=== PATIENT | female | born 1945 | race Asian ===

== ENCOUNTER → 2016-02-17 | Outpatient (CLI) | payer MEDICAID ==
[~2016-02-17] MED LIST: INSULADS SC; LIPI10TA PO; LISI-538 PO; METF500T PO; MIRA3350 PO; VITA50003 PO
[2016-02-17 09:01] LABS: ALBUMIN 3.9 GM/DL (3.2-5.2); ALBUMIN/GLOBULIN RATIO 1.15 (1.00-1.93); ALKALINE PHOSPHATASE 59 U/L (45-117); ALT/SGPT 63 U/L (12-78); ANION GAP 9 MEQ/L (8-16); AST/SGOT 33 U/L (15-37); BILIRUBIN,TOTAL 0.3 MG/DL (0.2-1.0); BLOOD UREA NITROGEN 14 MG/DL (7-18); CALCIUM LEVEL 8.8 MG/DL (8.8-10.2); CARBON DIOXIDE LEVEL 28 MEQ/L (21-32); CHLORIDE LEVEL 105 MEQ/L (98-107); CHOLESTEROL LEVEL 218 MG/DL (<200); CREATININE FOR GFR 0.58 MG/DL (0.55-1.02); GLOMERULAR FILTRATION RATE > 60.0 (>45); GLUCOSE, FASTING 112 MG/DL (80-110); POTASSIUM SERUM 4.2 MEQ/L (3.5-5.1); SODIUM LEVEL 142 MEQ/L (136-145); TOTAL PROTEIN 7.3 GM/DL (6.4-8.2); TRIGLYCERIDES LEVEL 175 MG/DL (<150)
[2016-02-17 09:15] LABS: BASO # 0.1 K/mm3 (0.0-0.2); BASO % 1.2 % (0.0-1.0); EOS # 0.3 K/mm3 (0.0-0.50); EOS % 3.4 % (0.0-3.0); LARGE UNSTAINED CELL # 0.2 K/mm3 (0.0-0.4); LYMPH # 4.4 K/mm3 (1.5-4.5); LYMPH % 49.9 % (24.0-44.0); MEAN CORPUSCULAR HGB CONC 31.1 g/dl (32.0-36.5); MEAN CORPUSCULAR VOLUME 70.7 fl (80.0-96.0); MONO # 0.4 K/mm3 (0.0-0.8); MONO % 4.6 % (0.0-5.0); NEUTROPHILS # 3.3 K/mm3 (1.8-7.7); NEUTROPHILS % 38.8 % (36.0-66.0); PLATELET COUNT, AUTOMATED 289 k/mm3 (150-450); WHITE BLOOD COUNT 8.5 K/mm3 (4.0-10.0)
== END ==
LOC: M LAB 08:04
PROVIDERS: ATTEND Physician Assistant Medical
DX: E11.9 Type 2 diabetes mellitus without complications (principal)

== ENCOUNTER → 2016-04-14 | Outpatient (CLI) | payer MEDICAID, OTHER ==
[2016-04-14 09:42] LABS: ANION GAP 7 MEQ/L (8-16); BLOOD UREA NITROGEN 10 MG/DL (7-18); CALCIUM LEVEL 8.7 MG/DL (8.8-10.2); CARBON DIOXIDE LEVEL 29 MEQ/L (21-32); CHLORIDE LEVEL 103 MEQ/L (98-107); CHOLESTEROL LEVEL 256 MG/DL (<200); CREATININE FOR GFR 0.61 MG/DL (0.55-1.02); GLOMERULAR FILTRATION RATE > 60.0 (>45); GLUCOSE, FASTING 153 MG/DL (80-110); POTASSIUM SERUM 4.5 MEQ/L (3.5-5.1); SODIUM LEVEL 139 MEQ/L (136-145); TRIGLYCERIDES LEVEL 212 MG/DL (<150)
== END ==
LOC: M LAB 08:35
PROVIDERS: ATTEND Nurse Practitioner Family
DX: E11.9 Type 2 diabetes mellitus without complications (principal); E78.5 Hyperlipidemia, unspecified; E55.9 Vitamin D deficiency, unspecified

== ENCOUNTER → 2016-05-11 | Outpatient (CLI) | payer OTHER ==
--- NOTE | 2016-05-11 13:58 | REPMRS ---
Patient History The patient states she has not had a clinical breast exam in over a year. Family history of unknown cancer in father and unknown cancer in mother. Digital Mammo Screening Bilat: May 11, 2016 - Exam #: [id number] Bilateral CC and MLO view(s) were taken. Technologist: Elle Medina, Technologist Prior study comparison: May 10, 2015, left breast digital mammo diagnostic unilateral performed at [facility]. May 10, 2015, left breast ultrasound unilateral limited performed at [facility]. May 03, 2015, bilateral digital mammo screening bilat performed at [facility]. FINDINGS: There are scattered fibroglandular densities. There has been no change in the appearance of the mammogram from the prior studies. There is a mild amount of residual fibroglandular tissue which is fairly symmetric. There is no interval development of dominant mass, architectural distortion, or clustered microcalcification suggestive of malignancy. A 10 mm nodule at 6 o'clock in left breast as seen on mammo and US last year as simple cyst, unchanged. There are scattered, small, benign calcifications of doubtful clinical significance. No significant changes when compared with prior studies. ASSESSMENT: BI-RADS/ACR category 2 mammogram. Benign finding(s). Recommendation Routine screening mammogram in 1 year (for women over age 40). This mammogram was interpreted with the aid of an FDA-approved computer-aided dectection system. A. Negative x-ray reports should not delay biopsy if a dominant or clinically suspicious mass is present. B. Four to eight percent of cancers are not identified by mammography. C. Adenosis and dense breast may obscure an underlying neoplasm. Electronically Signed By: Jignesh Singleton MD 05/11/16 [id number]
== END ==
LOC: M RAD 10:53
PROVIDERS: ATTEND Family Medicine Addiction Medicine
DX: R92.8 Other abnormal and inconclusive findings on diagnostic imaging of breast (principal)

== ENCOUNTER → 2016-05-29 | Outpatient (CLI) | payer OTHER ==
--- NOTE | 2016-05-29 16:08 | REP ---
RIGHT SHOULDER SERIES, COMPLETE: 05/29/2016: Clinical history: Shoulder arthropathy, pain. Findings: AC joint shows no widening of the joint space only minor degenerative change. There is minimal degenerative changes glenohumeral joint. Bones demineralized. No fracture, clavicle, ribs, scapula or humerus. No visible or displaced rib lesion, effusion or pneumothorax. Adjacent to the shoulder. There is no subluxation, dislocation of the humeral head from the glenoid. No abnormal soft tissue calcifications. Impressions:1. Some mild degenerative changes without visible fracture, avulsion, destructive lesion or abnormal soft-tissue calcification. Bones demineralized. Signed by Jignesh Singleton MD 05/29/2016 04:35 P
== END ==
LOC: M RAD 11:14
PROVIDERS: ATTEND Nurse Practitioner Family
DX: M12.811 Other specific arthropathies, not elsewhere classified, right shoulder (principal)

== ENCOUNTER 2016-07-26 19:24 | Inpatient (IN) | payer OTHER ==
[~2016-07-26] VITALS: Ht 149.9 cm; Wt 58.6 kg
[2016-07-26] MEDS ORDERED: SUCCINYLCHOLINE INJ 200 MG/10 ML VIAL (J0330) IV ONE (19:45)
[2016-07-26] MEDS ORDERED: LIDOCAINE IV SCH ×2 (19:45)
[2016-07-26] MEDS ORDERED: DILUENT IV SCH ×2 (19:45)
[2016-07-26] MEDS ORDERED: ETOMIDATE INJ 20MG/10ML VIAL IV ONE (19:45)
[2016-07-26] MEDS ORDERED: MIDAZOLAM HCL 50 MG in D5W 40 ML IV SCH ×2 (19:45→20:00)
[2016-07-26] MEDS ORDERED: D5W IV SCH ×2 (19:45)
[2016-07-26 20:03] LABS: BASO # 0.1 K/mm3 (0.0-0.2); BASO % 0.6 % (0.0-1.0); EOS # 0.3 K/mm3 (0.0-0.50); LARGE UNSTAINED CELL # 0.3 K/mm3 (0.0-0.4); LYMPH # 9.2 K/mm3 (1.5-4.5); MEAN CORPUSCULAR HEMOGLOBIN 23.1 pg (27.0-33.0); MEAN CORPUSCULAR HGB CONC 31.6 g/dl (32.0-36.5); MEAN CORPUSCULAR VOLUME 73.1 fl (80.0-96.0); MONO # 0.4 K/mm3 (0.0-0.8); MONO % 2.7 % (0.0-5.0); NEUTROPHILS # 5.6 K/mm3 (1.8-7.7); NEUTROPHILS % 35.7 % (36.0-66.0); PLATELET COUNT, AUTOMATED 254 k/mm3 (150-450); RED CELL DISTRIBUTION WIDTH 15.5 % (11.5-14.5)
[2016-07-26 20:09] LABS: WHITE BLOOD COUNT 15.6 K/mm3 (4.0-10.0)
[2016-07-26] MEDS ORDERED: ISOVUE-370 76% 100ML VIAL (Q9967) As Ordered ONE (20:11)
[2016-07-26 20:14] LABS: INR 1.03
[2016-07-26] MEDS ORDERED: fentaNYL 250 MCG/5 ML INJECTION (J3010) As Ordered ONE (20:34)
[2016-07-26] MEDS ORDERED: ROCURONIUM BROMIDE 50 MG/5 ML VIAL As Ordered ONE ×2 (20:34→23:43)
[2016-07-26 20:39] LABS: ALBUMIN 3.5 GM/DL (3.2-5.2); ALBUMIN/GLOBULIN RATIO 1.03 (1.00-1.93); ALKALINE PHOSPHATASE 58 U/L (45-117); ALT/SGPT 51 U/L (12-78); ANION GAP 10 MEQ/L (8-16); AST/SGOT 42 U/L (15-37); BILIRUBIN,DIRECT < 0.1 MG/DL (0.0-0.2); BILIRUBIN,TOTAL 0.3 MG/DL (0.2-1.0); BLOOD UREA NITROGEN 13 MG/DL (7-18); CALCIUM LEVEL 8.3 MG/DL (8.8-10.2); CARBON DIOXIDE LEVEL 25 MEQ/L (21-32); CHLORIDE LEVEL 105 MEQ/L (98-107); CREATININE FOR GFR 0.69 MG/DL (0.55-1.02); GLOMERULAR FILTRATION RATE > 60.0 (>45); GLUCOSE, FASTING 220 MG/DL (80-110); POTASSIUM SERUM 3.6 MEQ/L (3.5-5.1); SODIUM LEVEL 140 MEQ/L (136-145); TOTAL PROTEIN 6.9 GM/DL (6.4-8.2)
[2016-07-26] MEDS ORDERED: INSULANT SC (20:58)
[2016-07-26] MEDS ORDERED: TRAZ50TA4 PO (20:58)
[2016-07-26] MEDS ORDERED: ATOR40TA PO (20:58)
[2016-07-26] MEDS ORDERED: GABA-279 PO (20:58)
[2016-07-26] MEDS ORDERED: METF1000 PO (20:58)
[2016-07-26] MEDS ORDERED: LISI-542 PO (20:58)
--- NOTE | 2016-07-26 21:00 | REPUSA ---
CLINICAL HISTORY: Trauma. TECHNIQUE: Multiple axial, coronal, sagittal CT images were obtained through brain without IV contra st material. COMMENTS: Note is made of a very large hemispheric right subdural hematoma measuring up to 18 mm. There is sig nificant midline shift noted towards the left measuring up to 13 mm. There is significant compressio n of the right lateral ventricle. There is some compression of left lateral ventricle as well. There is evidence of small left subdural hematoma measuring up to 3 mm. There are areas of diffuse l eft frontal subarachnoid hemorrhage. There is obliteration of the quadrigeminal plate cisterns yoana tible with transtentorial herniation. Nonspecific calcification noted of the right cerebellar region . There is bilateral ethmoid and right sphenoid sinusitis noted. No definite skull fracture is visible . Both mastoids air cells are clear. Both orbits are symmetric. IMPRESSION: 1. Very large right subdural hematoma. 2. Midline shift to the left measuring up to 13 mm. 3. Small left subdural hematoma. 4. Left subarachnoid hemorrhage. 5. Evidence of transtentorial herniation. Discussed with Dr Bell at 8-44 pm EST Thank you for your kind referral of this patient. We appreciate the opportunity to participate in thi s patient's care.
[2016-07-26] MEDS ORDERED: THROMBIN SOLN 20,000 UNITS KIT As Ordered ONE ×3 (21:05→23:47)
[2016-07-26] MEDS ORDERED: LIDOCAINE W/EPINEPHRINE 1% 20ML VIAL As Ordered ONE ×2 (21:06→21:51)
--- NOTE | 2016-07-26 21:10 | REPUSA ---
CLINICAL HISTORY: Trauma. TECHNIQUE: Multiple axial images were obtained through the cervical spine. Images were also reconstr ucted in coronal and sagittal planes. The study was performed without IV contrast. FINDINGS: ET tube is in place. There is no fracture or spondylolisthesis visualized. The paraspinal soft tissues are unremarkable. There are no lytic or blastic lesions. Straightening of cervical lordosis is seen, suggesting muscular spasm. There is evidence of multilev el disc disease, demonstrated by osteophytosis and endplate sclerosis. Biapical fibronodular scarring is seen most severe in the right. Note is made of a heterogeneous thy roid gland suggesting nodule. Consider correlation with thyroid ultrasound. IMPRESSION: 1. No fracture or spondylolisthesis. 2. Straightening of cervical lordosis is seen, suggesting muscular spasm. 3. Multilevel spondylosis. Thank you for your kind referral of this patient. We appreciate the opportunity to participate in thi s patient's care.
[2016-07-26] MEDS ORDERED: METAL LOCK LOOP XX ONE (21:40)
[2016-07-26] MEDS ORDERED: LIDOCAINE 1% SDV INJ 30 ML VIAL As Ordered ONE (21:51)
[2016-07-26] MEDS ORDERED: ceFAZolin 1GM INJ (J0690) As Ordered ONE (21:51)
[2016-07-26] MEDS ORDERED: PHENYLephrine HCL 500 MCG/5 ML (100MCG/ML) SYRINGE (J2370) As Ordered ONE (22:11)
[2016-07-26 22:16] LABS: ABG BASE EXCESS -6.6 (-2.0-2.0); ABG DEVICE MECHAN. VENT; ABG HCO3 18.8 MEQ/L (22.0-26.0); ABG STANDARD HCO3 19.1 MEQ/L (22.0-26.0); ABG TOTAL CO2 19.9 MEQ/L (23.0-31.0); ABG pH (ARTERIAL) 7.324 UNITS (7.350-7.450)
[2016-07-26] MEDS ORDERED: PHENYLEPHRINE INJ 10MG/ML VIAL (J2370) As Ordered ONE (22:17)
[2016-07-26] MEDS ORDERED: MANNITOL 25% 12.5 GM/50 ML VIAL (J2150) As Ordered ONE ×2 (22:34→22:54)
[2016-07-26 23:13] LABS: ABG DEVICE MECHAN. VENT; ABG HCO3 17.6 MEQ/L (22.0-26.0); ABG PARTIAL PRESSURE O2 133.7 mmHg (75.0-100.0); ABG STANDARD HCO3 17.9 MEQ/L (22.0-26.0); ABG TOTAL CO2 18.7 MEQ/L (23.0-31.0); ABG pH (ARTERIAL) 7.306 UNITS (7.350-7.450)
[2016-07-27] VITALS (9 sets, daily range): BP systolic 26–82; BP diastolic 16–50
[2016-07-27] MEDS ORDERED: PHENYLEPHRINE INJ 10MG/ML VIAL (J2370) As Ordered ONE (00:06)
[2016-07-27 00:38] LABS: ABG BASE EXCESS -15.4 (-2.0-2.0); ABG DEVICE MECHAN. VENT; ABG PARTIAL PRESSURE O2 93.5 mmHg (75.0-100.0); ABG STANDARD HCO3 12.6 MEQ/L (22.0-26.0); ABG TOTAL CO2 13.1 MEQ/L (23.0-31.0)
[2016-07-27 00:43] LABS: ABG pH (ARTERIAL) 7.167 UNITS (7.350-7.450)
--- NOTE | 2016-07-27 01:27 | REP ---
Clinical: Endotracheal tube placement. Comparison: None. Findings: Endotracheal tube 2.5 cm from the andres. Mediastinum and cardiac silhouette are within normal limits. Lung tang demonstrate chronic-appearing interstitial changes without obvious focal consolidation, effusion, or pneumothorax. Skeletal structures intact. Impression: Endotracheal tube in satisfactory position. Chronic-appearing interstitial changes. Signed by Irwin Treviño MD 07/27/2016 01:18 A
[2016-07-27] MEDS ORDERED: PHENYLEPHRINE HCL INJ 50 MG in D5W 500 ML IV SCH ×2 (01:30→03:00)
[2016-07-27 02:21] LABS: ABG BASE EXCESS -11.8 (-2.0-2.0); ABG HCO3 15.8 MEQ/L (22.0-26.0); ABG PARTIAL PRESSURE CO2 43.9 mmHg (35.0-45.0); ABG PARTIAL PRESSURE O2 99.1 mmHg (75.0-100.0); ABG TOTAL CO2 17.2 MEQ/L (23.0-31.0)
[2016-07-27 02:22] LABS: ABG pH (ARTERIAL) 7.175 UNITS (7.350-7.450)
[2016-07-27] MEDS ORDERED: MIDAZOLAM INJ 2 MG/2 ML VIAL (J2250) IV PRN (03:00)
[2016-07-27] MEDS ORDERED: MORPHINE 2 MG/ML 1ML SYRINGE IV PRN (03:00)
--- NOTE | 2016-07-27 03:01 | REP ---
Clinical: Cardiac arrest. Comparison: 07/26/2016. Findings: Endotracheal tube 2.5 cm above the andres. Nasogastric tube courses below left hemidiaphragm. Mediastinum and cardiac silhouette are stable and within normal limits. Lung tang demonstrate chronic-appearing interstitial changes with possible trace basilar atelectasis. No focal consolidation, effusion, or pneumothorax. Skeletal structures intact. Impression: 1. Lines and tubes in satisfactory position. 2. Chronic-appearing changes. Cannot exclude trace basilar atelectasis. Signed by Irwin Treviño MD 07/27/2016 02:52 A
[2016-07-27 03:11] LABS: ANION GAP 16 MEQ/L (8-16); BLOOD UREA NITROGEN 12 MG/DL (7-18); CALCIUM LEVEL 5.1 MG/DL (8.8-10.2); CARBON DIOXIDE LEVEL 11 MEQ/L (21-32); CHLORIDE LEVEL 117 MEQ/L (98-107); CREATININE FOR GFR 0.84 MG/DL (0.55-1.02); GLOMERULAR FILTRATION RATE > 60.0 (>45); POTASSIUM SERUM 3.4 MEQ/L (3.5-5.1); SODIUM LEVEL 144 MEQ/L (136-145)
[2016-07-27 03:12] LABS: GLUCOSE, FASTING 409 MG/DL (80-110)
[2016-07-27 03:37] LABS: FIBRINOGEN > 700 MG/DL (221-452)
--- NOTE | 2016-07-27 06:46 | CCN ---
DATE: 07/27/2016 NOTE: Asked by Dr. Alvarado to consult on Ms. Robles for mechanical ventilation and intensive care unit (ICU) recommendations. Ms. Robles is a 70-year-old female with a past medical history significant for hypertension and diabetes mellitus type 2, who was in her usual state of health and was over at her daughter and son-in-law's home. She got up to go to the bathroom and mistakenly opened the door to the cellar and fell down the stairs, striking her head. She was found unresponsive. She was reported to respond to painful stimuli en route. She experienced emesis and Zofran was given. She had been transported with a cervical (C) collar and back board in place. In the emergency department, her [place] coma score was three. She was intubated. Evaluation unfortunately showed a very large right subdural hematoma with midline shift and a small left subdural hematoma and left subarachnoid hemorrhage. There was evidence of transtentorial herniation. Dr. Alvarado was consulted, and on his evaluation Ms. Robles would decerebrate bilaterally with pain. He found her pupils were mid and fixed. There was a flicker, if any, to corneal reflex, no extraocular movements (EOMs) or dolls eyes movement. The decision was made to take her surgery for evacuation of the hematoma and placement of ventriculostomy and intracranial pressure (ICP) monitoring. During surgery, they found massive brain swelling on opening of the dura, which exceeded the cranium by several inches with severe bruising, and a bone flap was left out. Upon arrival to the intensive care unit, she had no spontaneous movement nor did she respond to painful stimuli. She was on mechanical ventilation and was breathing 4-5 above the set rate. Approximately 40 minutes after arrival in the intensive care, she suddenly bradied down and spontaneous breathing ceased, and she was now breathing at the set rate on the ventilator. She was coded three times with less and less time for fusion between the episodes. We were never able to obtain a manual blood pressure following the first code. Time of was 2:32 a.m. ALLERGIES: No known drug allergies. MEDICATIONS: - MiraLax 17 grams by mouth daily - vitamin D 50,000 units weekly - metformin 1000 mg by mouth twice a day - Lantus 30 units subcutaneously daily - atorvastatin 40 mg by mouth daily - lisinopril 5 mg by mouth daily - gabapentin 100 mg by mouth at bedtime - trazodone 50 mg by mouth at bedtime PHYSICAL EXAMINATION: GENERAL: Ms. Knott was lying in bed synchronous with the ventilator. No spontaneous movement was seen. VITAL SIGNS: Temperature 96.8, respiratory rate 22, blood pressure 87/49, heart rate 98 to 105. HEENT: I did not open her eyes because of the significant eyelid edema. Nares patent bilaterally. Moist mucosa. Oropharynx: Endotracheal (ET) tube and orogastric (OG) tube in place. NECK: Without jugular venous distention (JVD), thyromegaly or masses. Trachea is midline. LYMPHATIC: Without cervical or supraclavicular lymphadenopathy. CHEST: Normal shape. LUNGS: Symmetric excursion. Good air entry. No wheeze, rhonchi or crackles. Tidal excursion. Normal I to E. No accessory muscle usage or retractions. CARDIOVASCULAR: Regular rate and rhythm with a normal S1, S2. No murmur, rub, or gallop appreciated. ABDOMEN: Absent bowel sounds. Soft, nondistended. No hepatosplenomegaly or masses appreciated. EXTREMITIES: Cool without clubbing or cyanosis, palpable pedal pulses bilaterally. LABORATORY DATA: Her initial intra-operative arterial blood gas was 7.32/37/101 with a measured saturation of 97.1 and a base excess of -6.6. The blood gas following the procedure was 7.18/34/94 with a measured saturation of 96% and a base excess of -15.4. I believe that was on an FiO2 of 0.4 and initial blood gas was on an FiO2 of 0.6. Chemistries on presentation showed a sodium 140, potassium 3.6, chloride 105, bicarbonate 25, anion gap 10, BUN 13, creatinine 0.7, glucose 220, calcium 8.3, total bilirubin 0.3, AST 42, ALT 51, alkaline phosphatase 58, total protein 6.9, albumin 3.5. INR was 1.03. PTT was 41.8. CBC on presentation showed a hemoglobin 11.2, hematocrit 35.3, platelet count 254,000, white blood cell count 15,600, with a differential of 36% neutrophils and 57% lymphocytes. Hemoglobin postoperatively was 7.5 and she was transfused two units with a subsequent repeat of 9.9. IMAGING: I reviewed her chest x-ray as well as the report. That x-ray showed normal-appearing cardiac silhouette and pulmonary vascular shadows with perhaps a slightly increased region in the right hilar region. No consolidated regions. No pneumothorax. No subcutaneous air. Endotracheal tube is in good position. IMPRESSION: 1. Acute respiratory failure requiring mechanical ventilation following traumatic subdural hematoma. 2. Diabetes mellitus. 3. Hypertension. RECOMMENDATIONS: 1. We will place her on lung protector strategy with a tidal volume of around 600 mL/kg of ideal body weight, which would be around 300 mL. For that reason, I chose pressure related volume control (PRVC). 2. I would like to see her breathing 2-4 breaths above the vent. I feel this is critical so that we can see if there has been a sudden change in her neurologic status, and that was no longer the case. 3. For the same reason, I had her placed on pressure trigger to make certain that there was not a cardiac trigger for the vent to "fool" us into thinking that she was breathing above he set rate. 4. The plan was initially to use phenylephrine with consideration for a central line placement and other pressor usage in the near future. 5. Repeat chemistries and disseminated intravascular coagulation (DIC) laboratories were sent prior to her coding. ADDENDUM: As noted above, she underwent three codes starting approximately 45 minutes after she was in the ICU before, which ultimately were not successful. CRITICAL CARE TIME: 45 minutes prior to the first code, with an additional 45 minutes of care involvement starting with the first code and ending with the calling. The vast majority of this time was spent involved in cardiopulmonary resuscitation.
[2016-07-27] MEDS ORDERED: EPINEPHrine 1MG/10ML SYRINGE 1.5IN ONE (06:54)
[2016-07-27] MEDS ORDERED: SUCCINYLCHOLINE 100 MG/5 ML SYRINGE (J0330) ONE (06:54)
[2016-07-27] MEDS ORDERED: LIDOCAINE 2% INJ 100 MG/5 ML SYRINGE ONE (06:54)
[2016-07-27] MEDS ORDERED: SODIUM BICARBONATE 8.4% INJ 50 ML SYRINGE ONE (06:54)
[2016-07-27] MEDS ORDERED: ETOMIDATE INJ 20MG/10ML VIAL ONE (06:54)
[2016-07-27] MEDS ORDERED: CHLORHEXIDINE GLUCONATE 0.12 % 15ML UDC (PERIDEX ORAL RINSE) MT SCH (09:00)
--- NOTE | 2016-07-27 21:53 | RO ---
DATE OF PROCEDURE: 07/27/2016 PREPROCEDURE DIAGNOSES: Coma with massive brain swelling, transfalcine and uncal herniation, subarachnoid hemorrhage, brain contusion, metabolic acidosis. POSTPROCEDURE DIAGNOSIS: Coma with massive brain swelling, transfalcine and uncal herniation, subarachnoid hemorrhage, brain contusion, metabolic acidosis. SURGEON: Christiano Saunders MD AUTOMOTIVE PARTS COUNTER ASSISTANT: None. ANESTHESIA: General. FINDINGS: The patient was seen in the emergency room at the request of Dr. Hale, the emergency room physician, for coma subsequent to a fall at home. The patient was seen just before he had intubated her. The patient was deeply comatose on pain or have intermittent decerebration of the lower extremities. Generally, there would not be much response. Pupils were mid and fixed. No extraocular movements. No Doll's eyes. She had spontaneous respirations. CT scan was requested and as soon as she was intubated she was taken to the CT scan suite where the above findings were seen of large acute subdural hematoma on the right with mass effect and midline shift. The basal systems were compromised. The grave outlook was discussed with the patient's family. 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 They understood the role of conservative management, though the patient's family demanded heroic measures and all measures for any possible chance of any recovery knowing the dismal and grave outlook. The rest of the patient's family requested that she was taken to the operating room where general anesthesia was given by the anesthesia service. The area of surgery was prepped and draped in the usual sterile fashion. A curvilinear skin incision was given, starting just over the zygoma and carried superiorly and posteriorly and then medially. Scalp flap was reflected and held apart with the help of the fish hooks. Just about 4 or 5 cm from the zygomatic process of the frontal bone, a bur hole was created on the superotemporal line and the dura was opened and a large amount of subdural hematoma expressed out of the bur hole site. Another bur hole was created at the zygomatic process of the frontal bone and one on the operative region and one near the temporalis canal suture line and a perlita-shaped bone flap was raised. The brain expressed out several inches of the skull vault. Most of the hematoma was evacuated at the exposed craniotomy surface. The frontal lobe was lifted and partially resected. The basal systems cisterns, including the sylvian fissure was opened. Scant CSF was seen in the ventriculostomy and expressed out 10 or 15 mL of CSF. The brain kept on swelling despite hyperventilation and Mannitol. The patient has shown signs of metabolic acidosis. A drain was placed in the basal system and an ICP monitoring device was placed in the subdural space and taken out of separate stab incisions. Bone flap was not replaced. A DuraGraft was placed over the dural defect and the wound was closed in two layers. After closing, ICP was about 30. The patient was transferred to the intensive care unit (ICU). Operative findings and grave outlook was discussed with the patient's family. The exposed brain was quite hemorrhagic and contused with little brain pulsations seen despite the evacuation of large portion of the hematoma. Blood loss was about a couple 100 mL from surgery and 250 to 300 mL of subdural blood clot, hemorrhagic cerebrospinal fluid.
--- NOTE | 2016-07-31 17:37 | DSES ---
DATE OF ADMISSION: 07/26/2016 DATE OF EXPIRATION: 07/27/2016 HOSPITAL COURSE: The patient was seen in the emergency room at the request of the emergency room (ER) physician on account of coma with fixed pupils and minimal, if any, response to pain. She was seen just before she got intubated in the emergency room by Dr. Silverman. The patient was found to be comatose with mid and fixed pupils and no extraocular movements or dolls eyes. However, on pain and greatly spontaneously she would posture in the lower extremities. The CT scan showed massive brain swelling with uncal and transfalcian herniation, obliteration of basal systems, large acute subdural hematoma. 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 They understood the matters of nonoperative management, salvage decompression. The patient's family wanted all heroic measures, clearly understanding the poor prognosis. On admission she was rushed to surgery requested by the family, who clearly understood dismal outlook and slim chance of any kind of recovery. In the operating room, left pterional craniotomy was done and basal systems were obliterated by massive brain swelling. The brain expressed out of the skull bone on opening several inches, and despite doing a degree of subfrontal lobectomy to get into the basal systems, some spinal fluid was removed from the medial sylvian fissure and mannitol was given. Nevertheless, the brain swelling never ceased, was present, and the wound was closed without a wound flap, and the patient was in the intensive care unit (ICU) and she had bradycardia and was resuscitated by the advertising sales agent and other physicians and was declared around 2:30 a.m. during the code, I had discussion with the family and they are getting once again dismal outlook and no hope of expecting her survival in any shape or form. She was declared soon after I left the family room discussion.
== END 2016-07-27 02:32 | disposition expired | DRG 20 ==
LOC: EDBD 19:24 → M ED 20:53 → M OROP 20:55 → M ICU 07-27 00:58 → M OROP 07-27 00:58 → M ICU 07-27 02:04
PROVIDERS: ADMIT Neurological Surgery; ATTEND Neurological Surgery
PROC: 009200Z Drainage of Dura Mater with Drainage Device, Open Approach (ICD-10-PCS; principal; 2016-07-27)
PROC: 00C00ZZ Extirpation of Matter from Brain, Open Approach (ICD-10-PCS; 2016-07-27)
PROC: 00B70ZZ Excision of Cerebral Hemisphere, Open Approach (ICD-10-PCS; 2016-07-27)
PROC: 5A1935Z Respiratory Ventilation, Less than 24 Consecutive Hours (ICD-10-PCS; 2016-07-27)
PROC: 30253N1 (ICD-10-PCS; 2016-07-27)
PROC: 0BH17EZ Insertion of Endotracheal Airway into Trachea, Via Natural or Artificial Opening (ICD-10-PCS; 2016-07-27)
DX: D65 Disseminated intravascular coagulation [defibrination syndrome]; J96.00 Acute respiratory failure, unspecified whether with hypoxia or hypercapnia; E87.2 Acidosis; R40.2432 Glasgow coma scale score 3-8, at arrival to emergency department; E11.9 Type 2 diabetes mellitus without complications; I10 Essential (primary) hypertension; W10.8XXA Fall (on) (from) other stairs and steps, initial encounter; Y92.018 Other place in single-family (private) house as the place of occurrence of the external cause; Z79.84 Long term (current) use of oral hypoglycemic drugs; Z79.4 Long term (current) use of insulin; Z79.899 Other long term (current) drug therapy